=== PATIENT | male | born 1970 | race Caucasian/White ===

== ENCOUNTER 2021-03-19 14:38 | Outpatient (CLI) | payer BC, SELFPAY ==
--- NOTE | 2021-03-19 14:47 | XRR_ITS ---
PROCEDURE INFORMATION: Exam: XR Left Finger(s) Exam date and time: 03/19/2021 2:47 PM Age: 50 years old Clinical indication: Mass or lump and swelling; Fingers; Left; Additional info: R22.9 - localized swelling, mass and lump, unspecified, mcp joint. TECHNIQUE: Imaging protocol: XR Left fingers. Views: Minimum 2 views. COMPARISON: No relevant prior studies available. FINDINGS: Bones/joints: Negative for acute bony abnormality. Soft tissues: Unremarkable soft tissues XR/XR finger LT min 2V [id number] IMPRESSION: No acute findings.
== END 2021-03-19 14:39 | disposition home or self-care (01) ==
LOC: RAD 14:46
PROVIDERS: PCP Nurse Practitioner Family; Visit Provider Surgery
DX: R22.32 Localized swelling, mass and lump, left upper limb
CPT/HCPCS: 73140

== ENCOUNTER 2021-05-01 14:30 | Outpatient (CLI) | payer BC, SELFPAY ==
--- NOTE | 2021-05-01 15:00 | US_ITS ---
WS: [id number] ULTRASOUND SOFT TISSUES LEFT second finger. HISTORY: R22.9 - Localized swelling, mass and lump, unspecified COMPARISON: 03/19/2021. TECHNIQUE: 2-D and color Doppler imaging is submitted. There is a soft tissue cystic mass associated with the palmar surface of the LEFT second finger. Mass measures 1.0 x 0.5 x 0.9 cm. There is through transmission and no increased vascularity. Closely ass ociated with the tendon sheath. US/US soft tissue/extremity [id number] IMPRESSION: Cystic mass along the palmar surface second finger. Favor this is probably a ga nglion or focal synovitis associated with the joint space.
== END 2021-05-01 14:31 | disposition home or self-care (01) ==
LOC: US 14:32
PROVIDERS: PCP Registered Nurse; Visit Provider Surgery
DX: R22.9 Localized swelling, mass and lump, unspecified (principal)
CPT/HCPCS: 76882

== ENCOUNTER → 2023-08-11 10:26 | Outpatient (BNVA) | payer BC, SELFPAY | PROVIDERS: PCP Registered Nurse; Visit Provider Nurse Practitioner Family | DX: R53.83 Other fatigue (principal); J06.9 Acute upper respiratory infection, unspecified | CPT/HCPCS: 80053; 80061; 82040; 83036; 83721; 84270; 84403; 84443; 85025 ==

== ENCOUNTER 2024-03-16 11:42 | Outpatient (CLI) | payer BC, SELFPAY ==
[2024-03-16 11:56] VITALS: BMI 26.7
--- NOTE | 2024-03-16 12:00 | ECG_ITS ---
[facility] Test Date: 2024-03-16 Pat Name: Jaswinder Smith Department: Room: Gender: Male Telesales Agent: : [id number] Requested By: Jovan Simmons Order Number: [id number] Ambar MD: Azeem Camilo M.D. Interpretive Statements EXERCISE STRESS TEST EXERCISE DATA: The patient was exercised by Juan F protocol. Baseline heart rate was 92 beats per minute. Baseline blood pressure was 100/81 millimeters of mercury. Maximal predicted heart rate was 167 beats per minute. Maximum heart rate achieved was 195, which was 116% of the maximum predicted heart rate. Maximum blood pressure was 208/95 millimeters of mercury. Total exercise time was 11 minutes 35 seconds. Maximum METs achieved was 11 minutes 35 seconds. The reason for ending the test was completion of protocol. The patient complained of left shoulder tightness and shortness of breath during the stress test, which then resolved at the end of the test. ELECTROCARDIOGRAM: BASELINE: Showed sinus rhythm, normal axis, no significant ST-T changes at the baseline noted. [] EXERCISE: At the peak exercise level, [] Minimal upsloping minimal ST depressions seen in the inferior leads that resolved on rest. RECOVERY: During the recovery period, heart rate dropped appropriately. No significant ST-T changes in the recovery suggestive of ischemia noted. [] CONCLUSION: 1. Exercise capacity is excellent 2. Heart rate response was appropriate 3. Blood pressure response was hypertensive. 4. Symptoms not suggestive of ischemia. 5. Stress test does not show evidence of ischemia Electronically Signed On 03-18-2024 19:47:26 CDT by Azeem Camilo M.D. [id number]
[2024-03-16 12:31] VITALS: BP 132/84; PULSE 118
== END 2024-03-16 11:43 | disposition home or self-care (01) ==
PROVIDERS: PCP Registered Nurse; Visit Provider Nurse Practitioner Family
DX: R06.09 Other forms of dyspnea (principal)
CPT/HCPCS: 93017

== ENCOUNTER → 2024-10-03 13:13 | Outpatient (BNVA) | payer OTHER, SELFPAY | PROVIDERS: PCP Registered Nurse; Visit Provider Registered Nurse | DX: R50.9 Fever, unspecified (principal) | CPT/HCPCS: 87400; 87426 ==

== ENCOUNTER → 2024-10-06 11:15 | Outpatient (BNVA) | payer OTHER, SELFPAY | PROVIDERS: PCP Registered Nurse; Visit Provider Nurse Practitioner Family | DX: E86.0 Dehydration (principal); J06.9 Acute upper respiratory infection, unspecified | CPT/HCPCS: 80053; 85025 ==

== ENCOUNTER 2024-11-07 12:59 | Emergency (ER) | payer OTHER, SELFPAY ==
[2024-11-07 13:11] VITALS: BP 135/85; PULSE 62; TEMP 36.4; O2SAT 99; BMI 25.5
--- NOTE | 2024-11-07 13:39 | ED_ITS ---
HPI - Male Genitourinary General: Chief complaint: Urogenital-Male Stated complaint: lump by testicles, pain in groin Time Seen by Provider: 11/07/24 13:30 Source: patient and family () Mode of arrival: ambulatory Limitations: no limitations History of Present Illness: Patient is a 53-year-old male who presents today complaining of a lump on his testicle. Patient reports that he noticed this about 6 to 7 months ago and feels like it has progressively grown over that time period. It has never been painful until yesterday evening and he had severe pain then. Patient notes that he tried ice with no relief, however a warm bath did somewhat alleviate the pain. Patient denies any testicular swelling, color change to the testicle, dysuria, hematuria, or penile discharge. At time of arrival, he is back to not having any discomfort. MD Complaint: testicle pain Onset (ago): month(s) (lump x months; only painful yesterday evening) Duration: progressively worsening (lump seems to be growing) Location: left testicle Severity: moderate Quality: sharp and stabbing Relieving factors: other (warm bath yesterday evening) Exacerbating factors: none Associated symptoms: Reports mass; Deny discharge, dysuria, fevers/chills, hematuria, nausea, rash, swelling, urinary incontinence, urinary retention, vomiting or other Related Data Previous Rx's ?Medication ?Instructions ?Recorded lisinopril 20 mg tablet 20 mg PO DAILY #90 tabs 01/17 01/10 Allergies Allergy/AdvReac Type Severity Reaction Status Date / Time No Known Allergies Allergy Verified 11/07/24 13:15 Review of Systems Const: Denies: fever(s), chills or body aches Card: Denies: chest pain or lightheadedness Resp: Denies: dyspnea GI: Denies: abdominal pain, nausea, vomiting, diarrhea, constipation, rectal pain or hematochezia : Reports: testicular pain and testicular mass; Denies: flank pain, difficulty urinating, dysuria, change in urine stream, urinary incontinence, hematuria, penile discharge or scrotal swelling PFSH ED PFSH: Surgical History H/O excision of ganglion cyst (06/04/21) left index finger Social History Smoking and tobacco/nicotine status: never used tobacco/nicotine Alcohol intake: never Substance/Drug Use: never Adopted: No Caregiver/support person: No Lives independently: No Current occupational status: employed Sexually active: Yes Do you think of yourself as: Straight/Heterosexual Current gender identity: Male Physical Exam Const: COMMON NORMALS: no acute distress, average body habitus, patient oriented x3, no limitations, healthy appearing, alert and well nourished ORIENTATION/CONSCIOUSNESS: Yes awake, Yes oriented to person, Yes oriented to place and Yes oriented to time GI: COMMON NORMALS: Normal to inspection, nondistended, normoactive bowel sounds present, Soft to palpation, non-tender and no masses PALPATION: Yes Soft to palpation : PENIS: normal penis MEATUS: meatus normal SCROTUM: Yes testes descended bilaterally, No Scrotal tenderness present, No erythematous, No ecchymosis, No edematous and No scrotal swelling TESTES: Yes testicular lie normal, No testicular swelling, No testicular tenderness, No testicular mass, Yes epididymal mass Epididymal mass laterality: left and Yes epididymal tenderness Neuro: COMMON NORMALS: patient oriented x3 SENSORIUM/ORIENTATION: Yes alert, Yes oriented to person, Yes oriented to place and Yes oriented to time Course Vital Signs: Vital signs: Vital Signs Temperature 97.5 F L 11/07/24 13:11 Pulse Rate 58 L 11/07/24 14:37 Blood Pressure 131/82 11/07/24 14:37 Pulse Oximetry 98 11/07/24 14:37 Oxygen Delivery Me thod Room Air 11/07/24 14:37 MDM - Male Medical Decision Making US showing a left epididymal head spermatocele. Patient will be referred to urology. UA is unremarkable. Medical Records I reviewed the patient's medical records. Lab Data Radiology Impressions Scrotum Ultrasound 11/07/24 13:42 IMPRESSION: No evidence of testicular mass or torsion. Left epididymal head 2 cm spermatocele. Laboratory Results Urine Color Yellow (Yellow) 11/07/24 14:36 Urine Appearance Cloudy (CLEAR) A 11/07/24 14:36 Urine pH 5.5 (5-7) 11/07/24 14:36 Ur Specific [employer] 1.018 (1.005-1.030) 11/07/24 14:36 Urine Protein Negative (Negative) 11/07/24 14:36 Urine Glucose (UA) Negative (Normal) 11/07/24 14:36 Urine Ketones Negative (Negative) 11/07/24 14:36 Urine Blood Negative (Negative) 11/07/24 14:36 Urine Nitrate Negative (Negative) 11/07/24 14:36 Urine Bilirubin Negative (Negative) 11/07/24 14:36 Urine Urobilinogen 0.2 mg/dL (Negative) 11/07/24 14:36 Ur Leukocyte Esterase Negative (Negative) 11/07/24 14:36 Urine RBC 0-2 /hpf (0-2) 11/07/24 14:36 Urine WBC 0-5 /hpf (0-5) 11/07/24 14:36 Ur Squamous Epith Cells 0-5 /hpf (0-5) 11/07/24 14:36 Amorphous Sediment Not Reportable 11/07/24 14:36 Urine Bacteria None seen /hpf (NONE) 11/07/24 14:36 Hyaline Casts 0-4 /lpf H 11/07/24 14:36 All radiology interpretation(s) finalized by discharge Discharge Plan Discharge Patient Disposition: Home Clinical Impression: Spermatocele Condition: Stable Prescriptions: No Action lisinopril 20 mg tablet 20 mg PO DAILY Qty: 90 3RF Discharge Orders: Discharge ED (Routine); Ordered 11/07/24 Ordered By: Rubina Escobedo Referrals: Jovan Avery, [employer]ANSCRIBER [Primary Care Provider] - Patient Instructions: Spermatocele (ED) Activity Restrictions/Additional Instructions: As we discussed, we will refer him to [facility] for further evaluation of his ultrasound findings today. Print Language: Luxembourgish Coding Level of Care Code ED Dental Detail Representative for Donnie Bajwa
--- NOTE | 2024-11-07 13:42 | USR_ITS ---
PROCEDURE INFORMATION: Exam: US Scrotum and Artery or Vein of the Abdominal and/or Reproductive Organs, Limited Scrotum Exam date and time: 11/07/2024 2:14 PM Age: 53 years old Clinical indication: Scrotum pain; Additional info: Pain/ bump TECHNIQUE: Imaging protocol: Real-time ultrasound of the scrotum. Real-time duplex ultrasound scan of the arterial or venous flow with real scale, color Doppler flow and spectral waveform analysis with image documentation. Limited Duplex exam focused of the scrotum. Duplex exam was performed to evaluate for torsion and other vascular conditions. COMPARISON: No prior relevant images available for comparison. FINDINGS: Right testicle: Normal. Measures 2.6 x 2.1 x 4.6 cm. No mass. Normal color Doppler and arterial waveforms. No torsion. Left testicle: Normal. Measures 2.7 x 2.3 x 4.7 cm. No mass. Normal color Doppler and arterial waveforms. No torsion. Epididymides: Normal on the right. Left epididymal head 2 cm spermatocele. Scrotum/soft tissues: Unremarkable. US/US scrotum [id number] IMPRESSION: No evidence of testicular mass or torsion. Left epididymal head 2 cm spermatocele.
[2024-11-07 14:37] VITALS: BP 131/82; PULSE 58; O2SAT 98
[2024-11-07 14:47] LABS: Bilirubin Urine Negative (Negative); Blood Urine Negative (Negative); Glucose Urine UA Negative (Normal); Ketones Urine Negative (Negative); Leukocyte Esterase Urine Negative (Negative); Nitrate Urine Negative (Negative); Protein Urine Negative (Negative); Specific Gravity, Urine 1.018 (1.005-1.030); Urine Appearance Cloudy (CLEAR); Urine Color Yellow (Yellow); Urobilinogen Urine 0.2 mg/dL (Negative); pH Urine 5.5 (5-7)
[2024-11-07 14:52] LABS: Add Urine Microscopic? YES; Bacteria Urine None Seen /hpf; Hyaline Casts Urine 0-4 /lpf; RBC Urine 0-2 /hpf (0-2); Squamous Epithelial Cell Urine 0-5 /hpf (0-5); WBC Urine 0-5 /hpf (0-5)
[2024-11-07 15:20] VITALS: BP 142/82; PULSE 53; O2SAT 97
--- NOTE | 2024-11-09 08:06 | DCPLANNER ---
Referral Sent to [facility]
== END 2024-11-07 15:21 | disposition home or self-care (01) ==
PROVIDERS: Emergency Provider Physician Assistant; PCP Nurse Practitioner Family
DX: N43.41 Spermatocele of epididymis, single (principal)
CPT/HCPCS: 76870; 81001; 99284